=== PATIENT | female | born 1940 | race Caucasian/White ===

== ENCOUNTER → 2018-11-08 | Outpatient (CLI) | payer MEDICARE ==
[~2018-11-08] MED LIST: CARBAMAZEPINE200 MG PO; FUROSEMIDE20 MG PO; HYDROCODON-ACE1 EA16 PO; KLOR-CON 1010 MEQ PO; TIROSINT75 MCG PO; ZETIA10 MG PO
--- NOTE | 2018-11-08 09:07 | Diagnostic Imaging Report ---
Left knee MRI without contrast. History: Knee pain. Medial meniscus tear. Decreased range of motion. Comparison: None. Technique: Multiplanar multi-sequence MRI of the knee without contrast. Findings: Medial compartment: Complex tear involving the posterior horn and body segments of the medial meniscus with radial component adjacent to the posterior root. The medial meniscus is subluxed to the periphery. There are regions of articular cartilage fraying and deep fissuring in the medial compartment with underlying bone marrow edema. There is a small subchondral microtrabecular fracture at the periphery of the medial femoral condyle with associated bone marrow edema best seen on coronal image 15. The medial collateral ligament complex is intact. Lateral compartment: No meniscal tear or cartilage abnormality. The LCL complex is normal. Intercondylar notch: The ACL and PCL are intact. Patellofemoral compartment: Regions of full-thickness articular cartilage loss in the patellofemoral compartment with underlying bone marrow edema. Extensor mechanism: The quadriceps and patellar tendons are normal. Other findings: There is a joint effusion and synovitis. There is no acute fracture, subluxation or avascular necrosis. 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 Regions of full-thickness articular cartilage loss in the patellofemoral compartment with underlying bone marrow edema. Joint effusion, synovitis and lobulated septated Willis's cyst Signed by: Dr. Prasanna Lizama M.D. on 11/08/2018 9:04 AM
== END ==
LOC: MRI 07:27
PROVIDERS: ATTEND Specialist
DX: S83.222A Peripheral tear of medial meniscus, current injury, left knee, initial encounter (principal)